=== PATIENT | female | born 1940 | race Hispanic/Latino ===

== ENCOUNTER 2016-11-11 13:36 | Outpatient (CLI) | payer MEDICARE ==
--- NOTE | 2016-11-11 16:38 | XRay Report ---
Right knee 3 views: History: Acute pain of right knee. Findings: Narrowing of the medial and patellofemoral compartment knee joint. Sclerotic articular surfaces with degenerative changes. No fracture. No soft tissue calcification. Impression: Degenerative changes medial and patellofemoral compartment knee joint.
== END 2016-11-11 13:37 | disposition home or self-care (01) ==
LOC: SPVIMAG 13:36
PROVIDERS: ATTEND Internal Medicine
DX: M25.561 Pain in right knee (principal)

== ENCOUNTER 2016-12-01 10:41 | Outpatient (CLI) | payer MEDICARE ==
--- NOTE | 2016-12-02 08:44 | Magnetic Resonance Report ---
MRI LEFT KNEE WITHOUT CONTRAST: 12/01/16 CLINICAL: Left leg and knee pain. TECHNIQUE: Sagittal proton density fat sat and T2, coronal T2 fat sat and proton density and axial gradient T2*sequences on a 1.5 Kandis magnet. FINDINGS: Complex tear of the posterior horn medial meniscus with signal extending to both superior and inferior articular surfaces. Full-thickness defect in the medial femoral cartilage. A benign enchondroma of the medial femoral condyle measures 1.4 x 1.3 cm. Marrow edema of the medial femoral condyle and medial tibial plateau. Subchondral fractures of the medial femoral condyle and the tibial plateau. No loose body identified. The lateral meniscus is intact. Intact cruciate ligaments and collateral ligaments. Moderate-sized knee joint effusion. Moderate thinning of the patellofemoral cartilage. The patellar tendon and retinaculum are intact. Abnormal hyperintense signal of the popliteus muscle but an intact popliteus tendon. The posterolateral corner structures appear to be intact. IMPRESSION: 1. Complex tear posterior horn medial meniscus. 2. 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 3. Subchondral fractures of the medial femoral condyle and tibial plateau. 4. Patellofemoral joint osteoarthritis. 5. Popliteus muscle sprain. 6. 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
== END 2016-12-01 10:42 | disposition home or self-care (01) ==
LOC: SPVIMAG 10:41
PROVIDERS: ATTEND Internal Medicine
DX: D16.22 Benign neoplasm of long bones of left lower limb (principal); S83.242A Other tear of medial meniscus, current injury, left knee, initial encounter; S72.8X2A Other fracture of left femur, initial encounter for closed fracture; M17.12 Unilateral primary osteoarthritis, left knee; M25.462 Effusion, left knee; S83.8X2A Sprain of other specified parts of left knee, initial encounter; M79.605 Pain in left leg; X58.XXXA Exposure to other specified factors, initial encounter; Y93.89 Activity, other specified; Y92.89 Other specified places as the place of occurrence of the external cause; Y99.8 Other external cause status
CPT/HCPCS: 73721

== ENCOUNTER 2017-12-29 10:31 | Outpatient (CLI) | payer MEDICARE ==
--- NOTE | 2017-12-29 15:44 | XRay Report ---
CHEST TWO VIEWS: 12/29/17 10:31:00 CLINICAL: Cough. Bronchitis. COMPARISON: None FINDINGS: Normal heart and pulmonary vasculature. The lungs are normally expanded and clear.Degenerative changes in the spine. IMPRESSION: No acute cardiopulmonary process.
--- NOTE | 2017-12-29 16:42 | Mammography Report ---
BONE DEXA:12/29/17 10:31:00 CLINICAL: Postmenopausal. No comparison. TECHNIQUE: Two site bone DEXA performed on an Hologic scanner. FINDINGS: The average BMD of the lumbar spine L1-L4 is 1.086g/cm squared with a T-score of +0.4 and a Z-score of +2.8. The average BMD of the right hip is 0.818g/cm squared with a T-score of -1.0 and a Z-score of +0.8. The right femoral neck BMD is 0.688g/cm squared with a T score of -1.5 and a Z score of +0.7 IMPRESSION: 1. WHO classification: Normal with average fracture risk based on lumbar spine measurements. 2. WHO classification: Osteopenia with increased fracture risk based on right femoral neck measurements. RECOMMENDATION: Clinical correlation and routine screening. DEFINITIONS: BMD = Bone Mineral Density T-score = BMD related to mean peak bone mass of young adult (mean expressed in Standard Deviation) Z-score = Age matched BMD expressed in SD World Health Organization (WHO) Diagnostic Criteria Normal T-score > -1 SD Osteopenia T-score between -1 and -2.4 SD Osteoporosis T-score -2.5 SD or below NOTE: BMD is not the only risk factor for fracture. One should also consider factors such as the patient's age, risk of falling, previous osteoporotic fracture, family history of osteoporotic fractures, current smoker, and low body weight. Z-scores are not calculated if >80 years of age.
--- NOTE | 2017-12-30 13:33 | Mammography Report ---
BILATERAL DIGITAL SCREENING MAMMOGRAM with CAD : 12/29/17 10:31:00 CLINICAL: Routine screening. COMPARISON:None available. FINDINGS: The breasts are heterogeneously dense, which may obscure small masses. No mass, architectural distortion or suspicious calcifications. IMPRESSION: No mammographic evidence of malignancy. BI-RADS CATEGORY: 2 -- Benign RECOMMENDATION: Routine mammographic screening in one year. COMMENT: Patient follow-up letters are generated by our [employer] application.
== END 2017-12-29 10:32 | disposition home or self-care (01) ==
LOC: SPVWC 10:31
PROVIDERS: ATTEND Internal Medicine
DX: Z12.31 Encounter for screening mammogram for malignant neoplasm of breast (principal); M85.851 Other specified disorders of bone density and structure, right thigh; M47.894 Other spondylosis, thoracic region; Z78.0 Asymptomatic menopausal state
CPT/HCPCS: 71046; 77067; 77080

== ENCOUNTER 2021-02-18 14:25 | Outpatient (CLI) | payer MEDICARE ==
--- NOTE | 2021-02-18 16:20 | Mammography Report ---
BILATERAL DIGITAL DIAGNOSTIC MAMMOGRAM WITH CAD CONVENTIONAL, 02/18/2021 RIGHT LIMITED BREAST ULTRASOUND CLINICAL INFORMATION / INDICATION: Right breast palpable abnormality by physician TECHNIQUE: Digital bilateral mammographic imaging was performed. Spot compression views were obtained . Limited ultrasound was performed. This examination was interpreted with the benefit of Computer-Aid ed Detection (CAD) analysis. COMPARISON: Bilateral mammogram 01/08/2018 FINDINGS: Breast Density: The breasts are heterogeneously dense, which may obscure small masses. MAMMOGRAPHIC FINDINGS: No significant changes are seen. No lesions are noted. ULTRASOUND FINDINGS: Targeted ultrasound evaluation was performed of the area of interest. No lesion is seen thought likely to account for the reported palpable abnormality. In the 1:00 position 5 cm fr om the nipple a 5 mm simple cyst is noted. Two tiny hypoechoic areas are seen measuring up to 5 mm in the 10:00 position, 5 cm from the nipple, an 11:00 position, 5 cm from the nipple, which probably ar e tiny complicated cysts though may just represent fibrocystic change. IMPRESSION: No lesions are seen thought likely to account for the reported palpable abnormality in th e right upper outer quadrant. Minimal sonographic abnormality as above. Follow up recommendation: 1. Clinical follow-up of palpable concern 2. Follow-up right breast ultrasound in 6 months BI-RADS Category 3: Probably Benign. Followup in 6 months. A "normal" or negative report should not discourage follow up or biopsy of a clinically significant f inding. A written summary of these findings will be mailed to the patient. The patient will be entered into a mammography reporting system which will generate a reminder letter for the patient's next appointmen t at the appropriate interval. According to the [employer], yearly mammograms are recommended starting at age 40 and continuing as long as a woman is in good health. Breast MRI is recommended for women with an ananya roximately 20-25% or greater lifetime risk of breast cancer, including women with a strong family his tory of breast or ovarian cancer and women who have been treated for Hodgkin's disease. Signer Name: Quinn Sena MD Signed: 02/18/2021 4:16 PM Workstation Name: [id number]
== END 2021-02-18 14:26 | disposition home or self-care (01) ==
LOC: SPVWC 14:25
PROVIDERS: ATTEND Internal Medicine
DX: N60.01 Solitary cyst of right breast (principal); N63.11 Unspecified lump in the right breast, upper outer quadrant
CPT/HCPCS: 77066

== ENCOUNTER 2021-06-10 14:03 | Outpatient (CLI) | payer MEDICARE ==
--- NOTE | 2021-06-10 15:27 | Ultrasound Report ---
RIGHT DIGITAL DIAGNOSTIC MAMMOGRAM WITH CAD CONVENTIONAL, 06/10/2021 RIGHT LIMITED BREAST ULTRASOUND CLINICAL INFORMATION / INDICATION: Patient presents for short interval follow-up of probably benign c omplicated cysts in the right breast. TECHNIQUE: Digital right mammographic imaging was performed. Limited ultrasound was performed. This e xamination was interpreted with the benefit of Computer-Aided Detection (CAD) analysis. COMPARISON: Prior mammograms 02/18/2021 and 12/29/2017 FINDINGS: Breast Density: The breasts are heterogeneously dense, which may obscure small masses. MAMMOGRAPHIC FINDINGS: No dominant mass, suspicious calcifications, or architectural distortion in th e right breast. There has been no significant change compared with the prior examinations. ULTRASOUND FINDINGS: Targeted ultrasound evaluation was performed of the area of interest. There ar e stable complicated cysts versus hypoechoic nodules, including a 4 mm nodule in the 10:00 position l ocated 5 cm from the nipple, a 4 mm nodule in the 11:00 position located 5 cm the nipple, and a 5 mm probable cluster of cysts in the 1:00 position located 6 cm from the nipple. IMPRESSION: 1. Several small benign-appearing complicated cysts versus hypoechoic nodules are unchanged compared with prior examination and remain probably benign. Recommend right breast ultrasound in 6 months to e nsure ongoing stability. Follow up recommendation: Short term follow up in 6 months. BI-RADS Category 3: Probably Benign. Followup in 6 months. A "normal" or negative report should not discourage follow up or biopsy of a clinically significant f inding. A written summary of these findings will be mailed to the patient. The patient will be entered into a mammography reporting system which will generate a reminder letter for the patient's next appointmen t at the appropriate interval. According to the [employer], yearly mammograms are recommended starting at age 40 and continuing as long as a woman is in good health. Breast MRI is recommended for women with an ananya roximately 20-25% or greater lifetime risk of breast cancer, including women with a strong family his tory of breast or ovarian cancer and women who have been treated for Hodgkin's disease. Signer Name: Haritha Ryder MD Signed: 06/10/2021 3:23 PM Workstation Name: [id number]
--- NOTE | 2021-06-10 16:13 | XRay Report ---
CHEST PA AND LATERAL VIEWS INDICATION: R06.00 DYSPNEA ON EXERTION. COMPARISON: 12/29/2017. FINDINGS: Support devices: None. Heart: Within normal limits. Lungs/Pleura: No acute pulmonary or pleural findings. IMPRESSION: 1. No acute findings. Signer Name: Jasiel Khan MD Signed: 06/10/2021 4:09 PM Workstation Name: [id number]
== END 2021-06-10 14:04 | disposition home or self-care (01) ==
LOC: SPVWC 14:03
PROVIDERS: ATTEND Internal Medicine
DX: N63.11 Unspecified lump in the right breast, upper outer quadrant (principal); R06.00 Dyspnea, unspecified
CPT/HCPCS: 71046

== ENCOUNTER 2021-12-16 14:10 | Outpatient (CLI) | payer MEDICARE ==
--- NOTE | 2021-12-16 17:31 | Mammography Report ---
DIGITAL SCREENING MAMMOGRAM WITH CAD, 12/16/2021 CLINICAL INFORMATION / INDICATION: Routine screening mammography. SCREENING MAMMO Z12.31 TECHNIQUE: Digital bilateral 2D mammography was obtained in the craniocaudal and mediolateral obliqu e projections. This examination was interpreted with the benefit of Computer-Aided Detection analysis . COMPARISON: 02/18/21, 06/10/21 FINDINGS: Breast Density: There are scattered areas of fibroglandular density. No dominant mass, suspicious calcifications, or architectural distortion in either breast. Bilateral benign-appearing nodularity is stable. IMPRESSION: No mammographic evidence of malignancy. No significant interval change. Follow up recommendation: Routine yearly BI-RADS Category 2: BENIGN. A "normal" or negative report should not discourage follow up or biopsy of a clinically significant f inding. A written summary of these findings will be mailed to the patient. The patient will be entered into a mammography reporting system which will generate a reminder letter for the patient's next appointmen t at the appropriate interval. The [employer] recommends yearly mammograms starting at age 40 and continuing as l josselyn as a woman is in good health. Breast MRI is recommended for women with an approximate 20-25% or greater lifetime risk of breast cancer, including women with a strong family history of breast or ova jean pierre cancer or who have been treated for Hodgkin's disease. Signer Name: Robbie Miles MD Signed: 12/16/2021 5:27 PM Workstation Name: [id number]
== END 2021-12-16 14:11 | disposition home or self-care (01) ==
LOC: SPVWC 14:10
PROVIDERS: ATTEND Internal Medicine
DX: Z12.31 Encounter for screening mammogram for malignant neoplasm of breast (principal)
CPT/HCPCS: 77067